=== PATIENT | female | born 1960 | race Caucasian/White ===

== ENCOUNTER 2021-01-27 05:35 | Day surgery (SDC) | payer OTHER ==
--- NOTE | 2021-01-15 15:38 | NUR ---
DOS: 01-27-21 STAIRS: NONE HAS RAMP INTO THE HOME SHOWER: WALK IN SHOWER WITH SEAT WALKER: WILL OBTAIN ONE TOILET: HAS TALL ONES FREIND WILL DRIVE PT TO APPOINTMENTS AND PT.
[~2021-01-27] VITALS: Ht 160 cm; Wt 115.5 kg
[~2021-01-27 05:35] MED LIST: ADVIL200 M1 PO; APPLE CIDER VI500 MG PO; ARNUITY ELLIPT50 MCG IH; CINNAMON500 MG PO; COLACE CLEAR50 MG PO; DAIRY RELIE9000 UNI1 PO; FLAXSEED OIL1000 M1 PO; GAS RELIEF125 MG PO; GLUCOSAMINE1000 MG PO; INDERAL XL80 MG PO; LANSOPRAZOLE15 MG PO; LOW DOSE ASPIRI81 MG PO; MAGNESIUM250 MG PO; MULTI VITAMIN1 EACH PO; OMEGA MONOPURE PO; OSTEOBLOX CF C1 EACH PO; PAMELOR75 MG PO; PRAVASTATIN SOD40 MG PO; SUPER B MAXI C0.4 MG PO; TRIAMTERENE-HC1 EAC1 PO; TYLOPHEN500 MG PO; ZESTRIL20 MG PO; ZOLOFT100 MG PO; [UNRECOGNIZED DRUG - OTHER] PO; [UNRECOGNIZED DRUG - OTHER] PO
--- NOTE | 2021-01-27 08:29 | NUR ---
PT HAD BEEN GIVEN BLOCK BY PICKER TENDER, PT FADING IN AND OUT. GAVE BLESSING AND ESCORTED PT'S MOTHER TO [place] WHERE OTHER DAUGHTER WAS WAITING. WILL FOLLOW NEEDED
[2021-01-27] MEDS ORDERED: XARELTO10 MG PO (08:51)
[2021-01-27] MEDS ORDERED: DICLOFENAC SODI75 MG PO (08:52)
[2021-01-27] MEDS ORDERED: OXYCODONE HCL5 MG PO (08:52)
[2021-01-27] MEDS ORDERED: ASPIRIN EC325 MG PO (08:52)
[2021-01-27] MEDS ORDERED: GABAPENTIN600 MG PO (08:53)
[2021-01-27] MEDS ORDERED: SENNA LAX8.6 MG PO (08:53)
--- NOTE | 2021-01-27 09:48 | NUR ---
PT IS BACK TO DS FROM PACU. SHE IS BACK TO HER BASELINE, SLIGHTLY LOOPY. WATER ON BEDSIDE TABLE. CALL LIGHT WITHIN REACH. MOM IS AT THE BEDSIDE. NO C/O'S AT THIS TIME. NO ADDITIONAL NEEDS. SHE IS DOES REQUEST PUDDING.
--- NOTE | 2021-01-27 10:02 | NUR ---
[facility] ARRIVED IN PACU NON RESPONSIVE TO NOXIOUS STIMULI. O2 SATS 88% ON RA. O2 AT 6L VIA MASK PLACED AND SATS INCREASED TO 100% WITH STIMULATION. 0900 MOVING BILAT FEET. 0920 C/O R KNEE PAIN 3-11/23. 926 TORADOL 30MG GIVEN IVP. 40 TO DS. PAIN DOWN TO 09/25. REPORT GIVEN TO RN.
--- NOTE | 2021-01-27 10:56 | NUR ---
LE 1050: PT IS DOING WELL. SHE IS TOLERATING WATER AND PUDDING. SHE WOULD LIKE TO GET UP TO USE THE RESTROOM. A SECOND NURSE IS USED FOR PT'S FIRST TIME UP OOB. SHE HAS ALL FEELING IN HER LIMBS/FEET. HER RIGHT KNEE DOES NOT FEEL LIKE IT IS GOING TO BUCKLE OR GIVE OUT ON HER. USING HER FRONT WHEELED WALKER, SHE WALKS TO THE BATHROOM, WHERE SHE IS ABLE TO VOID 300MLS. SHE WALKS WITH THE WALKER BACK TO HER ROOM. PHYSICAL THERAPY IS CALLED AND NOTIFIED THAT THE PT IS READY TO WORK WITH THEM SOON THEY ARE AVAILABLE.
--- NOTE | 2021-01-27 12:15 | NUR ---
PT IS BACK TO DS FROM [facility]YSICAL [facility]. CJ FROM [facility] CLEARS HER FOR SAFE DC HOME.
--- NOTE | 2021-01-27 12:44 | NUR ---
ASAD 1235: DR. ANTHONY GIVES A VERBAL OK TO DISCHARGE PATIENT HOME, SINCE ALL CRITERIA HAVE BEEN MET AND PHYSICAL THERAPY HAS CLEARED THE PT TO GO HOME. PT IS EDUCATED ON HOW TO BEST DRESS HERSELF AND TO OPEN HER CURTAIN WHEN SHE IS READY FOR DISCHARGE INSTRUCTIONS. PT'S MOM CALLS RIDE TO LET THEM KNOW THEY WILL BE READY TO GO IN 15 TO 20 MINUTES AND TO PULL UP TO THE FRONT DOORS OF HOSPITAL.
--- NOTE | 2021-01-27 13:20 | NUR ---
LE 1250: PT AND MOM ARE GIVEN VERBAL DC INSTRUCTTIONS, THEY BOTH VERBALIZE UNDERSTANDING. NO QUESTIONS AT THIS TIME. PT AND MOM ARE TAKEN TO PERSONAL VEHICLE VIA WC, THEY ARE BOTH ABLE TO TRANSFER FROM WC TO PERSONAL VEHICLE.
--- NOTE | 2021-01-31 07:27 | OR ---
[facility] [address] [facility] [place], [place] [address] Signed DATE OF OPERATION: 01/27/2021 SURGEON: Shanika Vargas MD PREOPERATIVE DIAGNOSIS: Severe degenerative joint disease, both knees. POSTOPERATIVE DIAGNOSIS: Severe degenerative joint disease, both knees. PROCEDURE PERFORMED: Right total knee arthroplasty. SUPERVISOR MAPPING: Vanesa Cabrera PA-C. She was present and critical for all portions of procedure. ANESTHESIA: Spinal. BLOOD LOSS: 175 mL. TOURNIQUET TIME: Zero. IMPLANTS: Kiesha Triathlon size 2 with a 10 mm polyethylene, a 32 mm patella. BRIEF HISTORY: Alhaji is a 60-year-old female with progressive worsening of osteoarthritis. 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 She wished to proceed with the right knee first. Risks, benefits, and alternatives were discussed with her and she elected to proceed. DESCRIPTION OF PROCEDURE: Once consent was obtained she was taken to the operating room after adequate anesthesia. She was placed on operating table. All downside pressure points well padded. The right knee was prepped and draped in the standard sterile fashion. The knee was approached through standard midline incision taken through the skin and subcutaneous Electronically Signed By: SHANIKA VARGAS MD 01/31/21 0727 PATIENT NAME: ALHAJI HUMPHREY OPERATIVE REPORT DATE OF : 60 REPORT #: [id number] PHYSICIAN: SHANIKA VARGAS MD PCP: YANICK THOMSON PAC REPORT IS CONFIDENTIAL AND NOT TO BE RELEASED WITHOUT AUTHORIZATION [facility] [address] [place], [place] [address] Signed tissue. A low mid vastus approach was undertaken and the arthrotomy was performed. The MCL was elevated with a sleeve around the posteromedial corner. The bleeders were cauterized as we went. Infrapatellar fat pad was excised and the checkpoints were placed in the femur and tibia. The computer array was placed in the medial femoral condyle intra incisional. The tibial array was placed one handbreadth below the tibial tuberosity through separate stab incisions. The leg was then registered with the computer as was the fine anatomic points of the knee. The osteophytes removed and ligament balance was assessed and the components were manipulated slightly to achieve the even gap balance. The robot was then brought in the straight cuts were made with care taken to protect the patellar tendon and MCL. The blade was changed to the angle blade and the 2 angle cuts were made. All bone fragments were removed as were any remaining osteophytes. Posterior osteophytes removed off the femur but opened. No posterior release was performed. The trials were positioned with a 10 mm polyethylene and found to be quite stable. She went from 0-130 degrees which presented thigh heel impingement. The patella was cut, sized and drilled for a 32 mm patella. The distal femoral drill holes were drilled and the proximal tibia was finished using the keel punch. The trials were removed. All bone surfaces were pulse lavaged and packed with dry Ray-Loretta. Her bone was fairly soft, we elected to go with a hybrid prosthesis. The cement was mixed and reached proper consistency, it was placed on the tibia and patella as well as the corresponding components. The tibia was impacted into position first followed by removal of all excess cement. The polyethylene was snapped into position and the femur was impacted until it was well-seated. The knee was extended and nicely loaded. The patella was clamped into position again any remaining overflow was removed. The cement was allowed to harden and the knee was irrigated with 3 L normal saline of 500 mL of Aricept. The knee was inspected for any remaining cement fragments and these were removed. The On-Q pain pump was placed percutaneously into the adductor canal from the suprapatellar pouch. The arthrotomy was then closed using #2 Stratafix, subcutaneous tissue with #0 Stratafix, and skin with milan. The knee was dressed with a WARREN wound VAC dressing and ABD and Km wrap. She tolerated the procedure well. All sponge, needle, and instrument counts were correct. Shanika Vargas MD BA/MODL /[id number] Electronically Signed By: SHANIKA VARGAS MD 01/31/21 0727 PATIENT NAME: ALHAJI HUMPHREY OPERATIVE REPORT DATE OF : 60 REPORT #: [id number] PHYSICIAN: SHANIKA VARGAS MD PCP: YANICK THOMSON PAC REPORT IS CONFIDENTIAL AND NOT TO BE RELEASED WITHOUT AUTHORIZATION [address] [address] Signed Copies: ~ Electronically Signed By: SHANIKA VARGAS MD 01/31/21 0727 PATIENT NAME: ALHAJI HUMPHREY OPERATIVE REPORT DATE OF : 60 REPORT #: [id number] PHYSICIAN: SHANIKA VARGAS MD PCP: YANICK THOMSON REPORT IS CONFIDENTIAL AND NOT TO BE RELEASED WITHOUT AUTHORIZATION
== END 2021-01-27 12:55 | disposition home or self-care (01) ==
LOC: DS 05:35
PROVIDERS: ATTEND Specialist
PROC: 0SRC0JZ Replacement of Right Knee Joint with Synthetic Substitute, Open Approach (ICD-10-PCS; principal; 2021-01-27 06:45)
DX: M17.0 Bilateral primary osteoarthritis of knee (principal); G89.18 Other acute postprocedural pain; I10 Essential (primary) hypertension; K21.9 Gastro-esophageal reflux disease without esophagitis; E78.00 Pure hypercholesterolemia, unspecified; R73.03 Prediabetes; K59.00 Constipation, unspecified; Z91.018 Allergy to other foods; Z91.048 Other nonmedicinal substance allergy status; Z79.82 Long term (current) use of aspirin; Z88.0 Allergy status to penicillin; Z91.040 Latex allergy status; Z88.8 Allergy status to other drugs, medicaments and biological substances
CPT/HCPCS: 01402; 64447; 64450; 76942; 97116; 97161; C1713; C1776; J0690; J1885; J2001; J2250; J2704; J2795; J7121

== ENCOUNTER 2021-02-07 18:30 | Emergency (ER) | payer OTHER ==
[~2021-02-07] VITALS: Ht 160 cm; Wt 115.2 kg
[~2021-02-07 18:30] MED LIST changes: +ASPIRIN EC325 MG PO; +DICLOFENAC SODI75 MG PO; +GABAPENTIN600 MG PO; +OXYCODONE HCL5 MG PO; +SENNA LAX8.6 MG PO; +XARELTO10 MG PO
--- OUTSIDE RECORDS SUMMARY | 2021-02-07 18:32 | XMS ---
PreManage Notification: ALHAJI HUMPHREY Security Sequ[employer] [place] Events No recent Security Events currently on file CRITERIA MET - [facility] CARE PROVIDERS There are no care providers on record at this time. Teresa has no Care Guidelines for this patient. Yimi VISIT COUNT (12 MO.) 1 RAMBO Teresa TOTAL 1 NOTE: Visits indicate total known visits. ED/C VISIT TRACKING (12 MO.) 02/07/2021 18:31 [facility] [place] TYPE: Emergency COMPLAINT: - POST OP PROBLEM INPATIENT VISIT TRACKING (12 MO.) No inpatient visits to display in this time frame [id number]
[2021-02-07] MEDS ORDERED: DOXYCYCLINE HY100 MG PO (19:16)
== END 2021-02-07 19:29 | disposition home or self-care (01) ==
LOC: ED 18:30
DX: T81.41XA Infection following a procedure, superficial incisional surgical site, initial encounter (principal); I10 Essential (primary) hypertension; E78.5 Hyperlipidemia, unspecified; Z88.0 Allergy status to penicillin; Z91.040 Latex allergy status; Z79.899 Other long term (current) drug therapy; Z79.82 Long term (current) use of aspirin
CPT/HCPCS: 85025; 99283

== ENCOUNTER 2021-03-17 07:02 | Emergency (ER) | payer OTHER ==
[~2021-03-17] VITALS: Ht 160 cm; Wt 115.2 kg
[~2021-03-17 07:02] MED LIST changes: +DOXYCYCLINE HY100 MG PO
[2021-03-17] MEDS ORDERED: BACTRIM DS TAB1 EACH PO (10:50)
== END 2021-03-17 11:55 | disposition home or self-care (01) ==
LOC: ED 07:02
DX: L03.115 Cellulitis of right lower limb (principal); L02.415 Cutaneous abscess of right lower limb; I10 Essential (primary) hypertension; E78.5 Hyperlipidemia, unspecified; Z88.0 Allergy status to penicillin; Z88.1 Allergy status to other antibiotic agents; Z91.040 Latex allergy status; Z79.899 Other long term (current) drug therapy; Z79.82 Long term (current) use of aspirin
CPT/HCPCS: 73560; 80048; 85025; 85651; 87205; 96365; 99283-25; J0696

== ENCOUNTER 2022-03-30 15:58 | Emergency (ER) | payer OTHER ==
[~2022-03-30] VITALS: Ht 160 cm; Wt 106.2 kg
[~2022-03-30 15:58] MED LIST changes: +BACTRIM DS TAB1 EACH PO
[2022-03-30] MEDS ORDERED: RIFAMPIN300 MG PO (16:49)
[2022-03-30] MEDS ORDERED: FUROSEMIDE20 MG PO (16:49)
[2022-03-30] MEDS ORDERED: BUPROPION HCL100 M1 PO (16:49)
[2022-03-30] MEDS ORDERED: SERTRALINE HCL100 MG PO (16:49)
== END 2022-03-30 19:30 | disposition home or self-care (01) ==
LOC: ED 15:58
DX: M96.830 Postprocedural hemorrhage of a musculoskeletal structure following a musculoskeletal system procedure (principal); I10 Essential (primary) hypertension; E78.5 Hyperlipidemia, unspecified; Z88.8 Allergy status to other drugs, medicaments and biological substances; Z91.040 Latex allergy status; Z79.899 Other long term (current) drug therapy; Z96.651 Presence of right artificial knee joint
CPT/HCPCS: 36415; 73560; 80053; 85025; 85651; 86140; 99283-25; A9270

== ENCOUNTER 2025-03-14 07:22 | Day surgery (SDC) | payer OTHER ==
[2025-03-08 08:54] VITALS: BP 131/63
[~2025-03-14] VITALS: Ht 160 cm; Wt 116.0 kg
--- NOTE | ~2025-03-14 | OR ---
[facility] [address] [place], [place] [address] Draft DATE OF OPERATION: 03/14/2025 SURGEON: Braden Mauricio DO PREOPERATIVE DIAGNOSIS: Colon cancer screening. POSTOPERATIVE DIAGNOSIS: Colon cancer screening with nonspecific colitis and internal hemorrhoids. PROCEDURE PERFORMED: Colonoscopy. ANESTHESIA: IV sedation. ESTIMATED BLOOD LOSS: None. DRAINS: None. COMPLICATIONS: None. DESCRIPTION OF PROCEDURE: The patient was brought to the GI lab, placed in supine position. After induction of IV sedation, she was placed in the left lateral position and padded to satisfaction of anesthesia. Digital rectal exam was performed and no gross abnormalities were noted. The Olympus video colonoscope was then introduced into the rectum and while insufflating, the colonoscope was advanced through the rectosigmoid, sigmoid colon, descending colon, transverse colon, into the ascending colon and cecum. The colon was then fully distended and aspiration of mucosal surfaces carried out. The cecum and ascending colon were without lesions or ulcerations. No intrinsic or extrinsic masses were appreciated. The scope was brought back to the hepatic flexure, transverse colon. No intrinsic or extrinsic masses were noted. No lesions or ulcerations were appreciated. Scope was passed the splenic flexure. In the descending colon, some mild nonspecific colitis noted, but no other intrinsic or extrinsic masses were appreciated. The scope was brought back into the sigmoid colon where some nonspecific colitis was noted. No intrinsic or extrinsic masses, lesions, or ulcerations were noted. Scope was PATIENT NAME: ALHAJI HUMPHREY OPERATIVE REPORT DATE OF : 60 REPORT #: [id number] PHYSICIAN: BRADEN MAURICIO DO PCP: YANICK THOMSON PAC REPORT IS CONFIDENTIAL AND NOT TO BE RELEASED WITHOUT AUTHORIZATION [address] [place] [address] Draft brought back into the rectosigmoid. There was some internal hernia circumferentially, but no other lesions or ulcerations were noted. The scope was removed. The patient tolerated the procedure well and went to recovery room in satisfactory condition. Braden Mauricio DO RS/MODL /[id number] Copies: ~ PATIENT NAME: ALHAJI HUMPHREY OPERATIVE REPORT DATE OF : 60 REPORT #: [id number] PHYSICIAN: BRADEN MAURICIO DO PCP: YANICK THOMSON PAC REPORT IS CONFIDENTIAL AND NOT TO BE RELEASED WITHOUT AUTHORIZATION
[~2025-03-14 07:22] MED LIST changes: +ADVIL200 MG PO; +ASPIRIN81 MG PO; +BUPROPION HCL100 M1 PO; +FLONASE ALLERG9.9 ML NAS; +FUROSEMIDE20 MG PO; +IBLOOD GLUCOSE TEST STRIP 1 EA TEST VI PRN; +LACTATED RINGER'S 1,000 ML IV SCH; +LIDOCAINE HCL 1% 5 ML SDV INJ ONE; +MELATONIN5 M5 PO; +NEURONTIN100 MG PO; +OMEPRAZOLE20 MG PO; +RIFAMPIN300 MG PO; +SERTRALINE HCL100 MG PO
[2025-03-14] MEDS ORDERED: CEFAZOLIN SODIUM 2 GM/20 ML SYR IV ONE (07:30)
[2025-03-14 07:37] VITALS: BP 137/73
[2025-03-14] MEDS ORDERED: LIDOCAINE HCL 2% 5 ML SDV ONE (08:42)
--- NOTE | 2025-03-14 10:03 | NUR ---
03/14/25 1003 Brunilda Ceballos 0956: PT ARRIVES TO PACU. REPORT RECEIEVED FROM [facility].
[2025-03-14 10:43] VITALS: BP 152/75
== END 2025-03-14 10:43 | disposition home or self-care (01) ==
LOC: DS 07:22
PROVIDERS: ATTEND Surgery
PROC: 0DJD8ZZ Inspection of Lower Intestinal Tract, Via Natural or Artificial Opening Endoscopic (ICD-10-PCS; principal; 2025-03-14 09:00)
DX: Z12.11 Encounter for screening for malignant neoplasm of colon (principal); K52.9 Noninfective gastroenteritis and colitis, unspecified; K64.8 Other hemorrhoids; E11.9 Type 2 diabetes mellitus without complications; I10 Essential (primary) hypertension; Z79.899 Other long term (current) drug therapy; Z79.82 Long term (current) use of aspirin; Z88.0 Allergy status to penicillin; Z91.040 Latex allergy status
CPT/HCPCS: 00812; J0690; J2003; J2704; J7121